=== PATIENT | female | born 1980 | race Caucasian/White ===

== ENCOUNTER 2022-02-27 10:32 | Outpatient (CLI) | payer OTHER, SELFPAY ==
[2022-02-27 14:13] LABS: Albumin* 4.3 g/dL (3.3-5.0)
[2022-02-27 14:14] LABS: Chloride* 107 mmol/L (96-114); Potassium* 4.5 mmol/L (3.6-5.1); Sodium* 138 mmol/L (135-149)
[2022-02-27 14:16] LABS: Aspartate Amino Transferase* 26 U/L (12-35); Bilirubin Total* 0.3 mg/dL (0.1-1.5); Blood Urea Nitrogen* 16 mg/dL (5-24); Carbon Dioxide* 25 mmol/L (20-32); Cholesterol* 179 mg/dL (90-199); Creatinine* 0.9 mg/dL (0.5-1.5); Estimated Glomerular Filt Rate 82 ml/min; Total Protein* 6.6 g/dL (6.0-8.3)
[2022-02-27 14:17] LABS: Alanine Aminotransferase* 25 U/L (4-35); Alkaline Phosphatase* 112 U/L (40-150); Calcium* 9.1 mg/dL (8.4-10.6); Glucose* 92 mg/dL (60-115); HDL Cholesterol* 63 mg/dL (>=50); LDL Cholesterol Calculated 84 mg/dL (<100); Triglycerides* 162 mg/dL (40-149)
[2022-02-28 22:34] LABS: Cortisol, Serum 8.2 ug/dL
== END 2022-02-27 10:33 | disposition home or self-care (01) ==
PROVIDERS: PCP Physician Assistant Medical; Visit Provider Physician Assistant Medical
DX: Z00.00 Encounter for general adult medical examination without abnormal findings (principal); R53.83 Other fatigue; Z13.6 Encounter for screening for cardiovascular disorders; Z13.29 Encounter for screening for other suspected endocrine disorder
CPT/HCPCS: 80053; 80061; 82533; 84443

== ENCOUNTER 2022-04-17 07:55 | Outpatient (CLI) | payer OTHER, SELFPAY ==
--- NOTE | 2022-04-17 08:15 | CRLHL7_ITS ---
For Patients: As a result of the Century Cures Act, medical imaging exams and procedure reports are released immediately into your electronic medical record. You may view this report before your referring provider. If you have questions, please contact your health care provider. BILATERAL SCREENING MAMMOGRAM WITH COMPUTER-AIDED DETECTION AND TOMOSYNTHESIS TECHNIQUE: CC and MLO views were obtained. These mammographic images have been obtained using full-field digital technique. These mammographic images were interpreted with the benefit of computer-aided detection. Breast Tomosynthesis was used in this interpretation. COMPARISON FILM: 03/07/21, 08/28/19, 05/21/17. FINDINGS: The breasts are heterogeneously dense, which may obscure small masses IMPRESSION: There is no radiographic evidence for malignancy. ASSESSMENT: BI-RADS Category 2: Benign RECOMMENDATION: Routine screening mammogram in 1 year. A lay language report of this examination will be provided to the patient. Jorge Alberto Sevilla M.D. Diagnostic Radiologist [email or web address] Transcribed: 3:27 p.[email or web address] singh/Dictated by: Jorge Alberto Sevilla MD @ 04/17/2022 10:42:00 AM (Electronically Signed)
== END 2022-04-17 07:56 | disposition home or self-care (01) ==
LOC: MAMMO 07:56
PROVIDERS: PCP Physician Assistant Medical; Visit Provider Physician Assistant Medical
DX: Z12.31 Encounter for screening mammogram for malignant neoplasm of breast (principal); R92.2 Inconclusive mammogram
CPT/HCPCS: 77063; 77067

== ENCOUNTER 2022-04-20 06:44 | Outpatient (CLI) | payer OTHER, SELFPAY | END 2022-04-20 06:45 | disposition home or self-care (01) | LOC: OP CLINIC 06:46 | PROVIDERS: PCP Physician Assistant Medical; Visit Provider Internal Medicine | DX: Z12.11 Encounter for screening for malignant neoplasm of colon (principal); K57.30 Diverticulosis of large intestine without perforation or abscess without bleeding; Z86.010 Personal history of colon polyps | CPT/HCPCS: 45378; J2250; J3010 ==

== ENCOUNTER 2022-07-31 08:09 | Outpatient (CLI) | payer OTHER, SELFPAY ==
--- NOTE | 2022-07-31 08:15 | CRLHL7_ITS ---
For Patients: As a result of the Century Cures Act, medical imaging exams and procedure reports are released immediately into your electronic medical record. You may view this report before your referring provider. If you have questions, please contact your health care provider. INDICATION: Irregular menses COMPARISON: 11/27/2019 TECHNIQUE: 2D perry scale and color Doppler images were acquired of the pelvis using a transabdominal and transvaginal approach. FINDINGS: Sonographic images demonstrate a normal size and smooth outer contour of the uterus. Uterus measures 7.2 cm in length by 4.6 cm in AP diameter by 5.6 cm in transverse dimension. The myometrium has a mildly heterogeneous echotexture. The endometrial lining appears heterogeneous and measures 9 mm in composite thickness. The right ovary measures 2.8 x 1.9 x 2.1 cm in size and the left ovary measures 2.4 x 1.2 x 2.6 cm. The ovaries demonstrate normal arterial and venous blood flow on color Doppler analysis. Trace physiologic free fluid. Small left ovarian cyst is present measuring up to 1.4 cm containing a single septation and small area of peripheral echogenicity. IMPRESSION: Heterogeneous endometrium measuring 9 millimeters. Mildly complicated left ovarian cyst measuring 1.4 cm. Follow-up in 8-12 weeks recommended. Dictated by Jorge Alberto Sevilla MD @ 07/31/2022 10:28:28 AM (Electronically Signed)
== END 2022-07-31 08:10 | disposition home or self-care (01) ==
LOC: US 08:09
PROVIDERS: PCP Physician Assistant Medical; Visit Provider Physician Assistant Medical
DX: N92.6 Irregular menstruation, unspecified (principal); R93.89 Abnormal findings on diagnostic imaging of other specified body structures; N83.202 Unspecified ovarian cyst, left side
CPT/HCPCS: 76830; 76856

== ENCOUNTER 2022-09-21 14:53 | Outpatient (CLI) | payer OTHER, SELFPAY ==
--- NOTE | 2022-09-21 15:00 | CRLHL7_ITS ---
For Patients: As a result of the Century Cures Act, medical imaging exams and procedure reports are released immediately into your electronic medical record. You may view this report before your referring provider. If you have questions, please contact your health care provider. CLINICAL HISTORY: Follow-up ovarian cyst Comparison 07/31/2022 TECHNIQUE: 2D perry scale and color Doppler images were acquired of the pelvis using a transvaginal approach. FINDINGS: No uterine fibroid is present. The endometrium is mildly heterogeneous and measures 9 millimeters. Cervical nabothian cysts are present. There is a right endometrial cyst measuring 7 millimeters. The right ovary measures 5.4 x 2.5 x 2.7 cm. The left ovary measures 2.4 x 1.7 x 1.9 cm. Simple left ovarian cysts are present measuring up to 1.6 cm. A simple right ovarian cyst is present measuring 2.3 cm. There is a additional right ovarian cyst containing internal echoes measuring 2.0 cm. The ovaries demonstrate normal arterial and venous blood flow on color Doppler analysis. Mild hypoechoic pelvic free-fluid noted measuring 4 cc. Simple bilateral ovarian cysts/follicles measuring up to 2.3 cm. There is a heterogeneously hypoechoic right ovarian cyst measuring 2.0 cm which has the appearance of a hemorrhagic cyst. Mild free fluid present containing blood products. Heterogeneous endometrium measuring up to 9 millimeters with small adjacent cyst in the mid uterus. Dictated by Jorge Alberto Sevilla MD @ 09/24/2022 9:56:08 AM (Electronically Signed)
== END 2022-09-21 14:54 | disposition home or self-care (01) ==
LOC: US 14:53
PROVIDERS: PCP Physician Assistant Medical; Visit Provider Physician Assistant Medical
DX: N83.209 Unspecified ovarian cyst, unspecified side (principal); N83.292 Other ovarian cyst, left side; N83.291 Other ovarian cyst, right side; R93.89 Abnormal findings on diagnostic imaging of other specified body structures
CPT/HCPCS: 76830

== ENCOUNTER 2022-10-11 15:42 | Outpatient (CLI) | payer OTHER, SELFPAY | END 2022-10-11 15:43 | disposition home or self-care (01) | LOC: FRMREF 15:42 | PROVIDERS: PCP Physician Assistant Medical; Visit Provider Registered Nurse | DX: R39.15 Urgency of urination (principal) | CPT/HCPCS: 87086 ==

== ENCOUNTER 2023-01-01 06:44 | Day surgery (SDC) | payer OTHER, SELFPAY ==
--- OUTSIDE RECORDS SUMMARY | 2023-01-01 06:48 | XMS_ITS | Continuity of Care Document ---
Author Name Unknown Organization [facility] Address [address] [address] [place] [address] Phone Care Team Providers Care Sustainability Coach Name Role Phone Unavailable Unavailable Unavailable Allergies, Adverse Reactions, Alerts Substance Reaction Status Criticality No Known allergies Procedures Procedure Date Ua Dip Stik/tablet; Wo Micro A 12 Hepatitis C Antibody; Sed Rate, Erythrocyte; Auto Hepatitis A Antibody; Igg & Ig 12 Ag-immunoassay; Hep B Surface 2 Hepatitis B Surface Antibody Ferritin Offic Cons New/estab Mod Routine Serum Collection [id number] Advance Directives Directive Yes / No Effective Date File Name No Information Encounters Encounter Description Practice Location Reason(s) For Visit Diagnoses Date Provider Providers Copied on Encounter [facility], [address] [address], [place], [id number], [place] tel:[phone] [facility] No Information No Information Offic Cons New/estab Mod [facility], [address] [address], [place], [id number], [place] tel:[phone] [facility] Abnormal liver enzymes (chief complaint) Fatigue (chief complaint) Abn Blood Chemistry NecConstipatio n Unspecified 2 No Information Referring Provider: Jes DOUGLAS, [address] [place] [address], [address]. tel:[phone] Family History Family Member Type Diagnosis Age At Onset First degree family history Problem (finding) No Family history of No history of Colon Polyps First degree family history Problem (finding) Thyroid Disorder First degree family history Problem (finding) diverticulitis of colon First degree family history Problem (finding) No history of Crohn's First degree family history Problem (finding) No history of Cancer, colon First degree family history Problem (finding) No history of Ulcerative Colitis Payers Payer name Insurance type Covered alliance party ID Authoriza timera(s) [facility] [id number] Social History Type Description Quantity Date Captured Comments Sex Female Smoking Status No Information Chief Complaint And Reason For Visit No Information Reason For Referral Reason For Referral No Information History Of Present Illness Encounter Date Complaint History Of Prese nt Illness No Information Functional Status Date Functional Assessmen t No Information Instructions Date Instruction Additional Infor mation No Information Assessments Type Assessment Date No Information Patient Care Teams Name Effective Dates (start - stop) Status Members No Information
--- OUTSIDE RECORDS SUMMARY | 2023-01-01 06:48 | XMS_ITS | Continuity of Care Document ---
Author Name Unknown Organization [facility] Address [address] [address] [place] [address] Phone Care Team Providers Care Painting Manager Name Role Phone Unavailable Unavailable Unavailable Allergies, [...] Diagnoses Date Provider Providers Copied on Encounter [facility], [address] [address], [place], [id number], [place] tel:[phone] [facility] No Information No Information Offic Cons New/estab Mod [facility], [address] [address], [place], [id number], [place] tel:[phone] [facility] Abnormal liver enzymes (chief complaint) Fatigue (chief complaint) Abn Blood Chemistry NecConstipatio n Unspecified 2 No Information Referring Provider: Jes DOUGLAS, [address] [place] [address], [address]. tel:[phone] Family History Family Member Type Diagnosis Age [...] type Covered alliance party ID Authoriza timera(s) [facility] [id number] Social History Type Description Quantity Date Captured [...]
[2023-01-01 07:04] VITALS: BP 114/72; PULSE 76; RESP 16; TEMP 36.3; O2SAT 97; BMI 31.4
[2023-01-01 07:04] LABS: Ur HCG Qualitative* Negative (Negative)
[2023-01-01] MEDS: SODIUM CHLORIDE 0.9 % (FLUSH) 10 ML SYRINGE IVF (07:15)
[2023-01-01] MEDS: LACTATED RINGERS 1000 ML 1,000 ML 100 ML IV (07:15)
[2023-01-01 07:34] LABS: Hemoglobin* 12.2 gm/dL (12.0-16.0)
[2023-01-01] MEDS: SCOPOLAMINE 1 MG/3 DAY PATCH 1 PATCH TRANSDERMA (08:00)
--- NOTE | 2023-01-01 09:18 | W.PM.GYNPROC ---
Procedure Note Time Seen by Provider: 08:15 Date of procedure: 01/01/23 Pre-op diagnosis: Abnormal uterine bleeding-suspected endometrial polyps Post-op diagnosis: same Procedure: Hysteroscopy, dilation and curettage Anesthesia: MAC Complications: None Surgeon: Vishnu Maldonado MD Estimated blood loss (mL): 5 IV fluids (mL): 600 Urine Output (mL): 5 Pathology: specimen obtained, sent to pathology (1. Endometrial curetting) Condition: stable Disposition: same day Findings: Findings: Bimanual exam: Antevereted uterus of about 9cm, regular contour, no adnexal masses. Intrauterine cavity: Initially left sided cornua not easily visualized, after curetting performed identified easily, bilateral cornual openings seen. Procedure Description: Patient was taken to the OR were MAC anesthesia was administered without difficulty. She was placed in the dorsal lithotomy position with Freddie type stirrups. An exam under anesthesia as described above. Patient was then prepared and draped in the normal sterile fashion. A bivalved speculum was inserted in the posterior aspect of the vagina. 0.5% Marcaine was injected at 2 and 11 o'clock a total of about 5mL utilized. A single-tooth tenaculum was used to grasp the anterior lip of the cervix. The uterus was carefully sounded to 8 cm. The cervical os was sequentially dilated to accommodate the 5 mm TrueClear hysteroscope using Hegar dilators. A 5 mm 30 degree TrueClear hysteroscope was introduced under direct visualization, and the uterus was distended with normal saline. Findings as above. Soft tissue incisor blade from TrueClear hysteroscope system was introduced under direct visualization and endometrial curettings performed. Hysteroscope removed under direct visualization. Tenaculum was removed from the cervix and good hemostasis was noted at puncture sites. Patient tolerated the procedure well. Instrument and sponge counts were correct x2. The patient was awakened from MAC anesthesia and taken to the recovery room in a stable condition. The patient will go home after recovering from anesthesia and meeting all the criteria for discharge. She was given instruction regarding follow-up visit in 2 weeks at [facility] and instructions for pain medication. Fluid deficit: 130mL
[2023-01-01 09:19] VITALS: BP 135/85; PULSE 64; RESP 16; TEMP 36.5; O2SAT 98
--- NOTE | 2023-01-01 09:29 | W.ANESCHARGE ---
Anesthesia Charges Start Date/Time Anesthesia Start Date: 01/01/23 Anesthesia Start Time: 08:47 Stop Date/Time Anesthesia Stop Date: 01/01/23 Anesthesia Stop Time: 09:21
[2023-01-01 09:30] VITALS: BP 137/81; PULSE 71; RESP 16; O2SAT 97
[2023-01-01] MEDS: ACETAMINOPHEN 500 MG TABLET 1000 MG PO (09:42)
[2023-01-01 09:45] VITALS: BP 122/77; PULSE 71; RESP 16; O2SAT 97
[2023-01-01 10:00] VITALS: BP 114/75; PULSE 63; RESP 16; O2SAT 96
== END 2023-01-01 10:20 | disposition home or self-care (01) ==
PROVIDERS: PCP Physician Assistant Medical; Visit Provider Obstetrics & Gynecology
PROC: 0UDB8ZZ Extraction of Endometrium, Via Natural or Artificial Opening Endoscopic (ICD-10-PCS; CPT 58558; principal; 2023-01-01 08:15)
DX: N93.8 Other specified abnormal uterine and vaginal bleeding (principal)
CPT/HCPCS: 58558; 00952; 36415; 81025; 85018; 88305; A9270; J1100; J2250; J2405; J2704; J3010; J7120

== ENCOUNTER 2023-05-20 13:29 | Outpatient (CLI) | payer OTHER, SELFPAY ==
--- OUTSIDE RECORDS SUMMARY | 2023-05-20 13:39 | XMS_ITS | Clinical Summary ---
Author Name Unknown Organization [facility] Address [place], [place] [address] Care Team Providers Care Director Channel Name Role Phone Ni Cai Primary Care Provider [phone] Allergies No known active allergies Medications Medication Sig Dispensed Refills Start Date End Date Status albuterol HFA (PROVENTIL HFA) 90 mcg/actuation inhaler Inhale 2 Puffs by mouth 4 times daily if needed. 0 05/20/2015 Active venlafaxine (EFFEXOR XR) 75 mg cp24 Extended-Release capsule Take by mouth once daily with a meal. 0 01/15/2020 Active pantoprazole (PROTONIX) 40 mg delayed-release tabletIndications:Yoshi roesophageal reflux disease without esophagitis Take 1 tablet by mouth once daily. 30 tablet 3 01/15/2020 Active Active Problems Problem Noted Date Diagnosed Date History of colon polyps 05/20/2015 Overview: Colonoscopy 05/2015 normal repeat in 5 years Social History Tobacco Use Types Packs/Day Years Used Date Smoking Tobacco: Never Assessed Social Connections Answer Date Recorded Frequency of Communication with Friends and Fami ly Not on file 04/01/2021 Financial Resource Strain Answer Date R ecorded Difficulty of Paying Living Expenses Not on file 04/01/2021 Difficulty of Paying Living Expenses Not on file 04/01/2021 Sex and Gender Information Value Date Recorded Sex Assigned at Not on file Gender Identity Not on file Sexual Orientation Not on file Obstetrics History Last Filed Vital Signs Vital Sign Reading Time Taken Comments Blood Pressure 112/64 01/15/2020 3:14 PM CDT Pulse 90 01/15/2020 3:14 PM CDT Temperature - - Respiratory Rate 17 01/15/2020 3:14 PM CDT Oxygen Saturation 100% 05/20/2015 10:06 AM RADIO ADJUSTER Inhaled Oxygen Concentration - - Weight - - Height - - Body Mass Index - - Plan of Treatment Health Maintenance Due Date Last Done Comments COVID-19 vaccine series (#1) 04/02/1980 Tdap 09/30/1990 Depression screening for age 12+ 1991 HIV for age 15-65 09/30/1994 BMI (ht and wt on same day) for age 18+ 09/30/1997 Hepatitis C screening for age 18-79 09/30/1997 Tetanus booster 1999 Influenza for age 9-49 11/30/2022 Pap test for age 21-65 02/15/2025 , 02/15/2022, 06/06/2018, Additional history exists Pneumococcal series for age 6-64 Aged Out No longer eligible based on patient's age to complete this topic Care Teams Director Channel Relationship Specialty Start Date End Date Ni Cai PCP - General Family Practice 05/20/15
--- OUTSIDE RECORDS SUMMARY | 2023-05-20 13:39 | XMS_ITS | Clinical Summary ---
Author Name Unknown Organization [facility] Address [address] [place] [address] Care Team Providers Care Cuff Setter Lockstitch Name Role Phone Unavailable Primary Care Provider Unavailabl e Source Comments You are receiving this document as you are listed as the primary care provider,follow-up provider, or the patient has been referred to you for consultation.This is in compliance with the Medicare andMedicaid EHR Incentive Program,which states Providers who transition their patient to another setting of careor provider of care or refers their patient to another provider of care shouldprovide summary care record for each transition of care or referral. [facility] Allergies No known active allergies Medications Medication Sig Dispensed Refills Start Date End Date Status VENTOLIN HFA 108 (90 Base) MCG/ACT inhaler INHALE 2 PUFFS BY MOUTH EVERY 4 HOURS NEEDED 05/02/2020 Active pantoprazole (PROTONIX) 40 MG tablet Take 40 mg by mouth daily. 04/08/2020 Active venlafaxine (EFFEXORXR) 75 MG 24 hour release capsule 05/05/2020 Acti ve scopolamine (TRANSDERM-SCOP) 1.0mg/3 days patch 04/28/2020 Active Active Problems No known active problems Immunizations Name Administration Dates Next Due Tdap 05/09/2020 Social History Tobacco Use Types Packs/Day Years Used Date Smoking Tobacco: Never Smokeless Tobacco: Never Sex and Gender Information Value Date Recorded Sex Assigned at Not on file Gender Identity Not on file Sexual Orientation Not on file Last Filed Vital Signs Vital Sign Reading Time Taken Comments Blood Pressure 113/87 05/09/2020 2:24 PM SECOND BUTLER Pulse 95 05/09/2020 2:24 PM SECOND BUTLER Temperature 36.8 ??C (98.2 ??F) 05/09/2020 2:24 PM CS T Respiratory Rate 16 05/09/2020 2:24 PM SECOND BUTLER Oxygen Saturation 100% 05/09/2020 2:24 PM SECOND BUTLER Inhaled Oxygen Concentration - - Weight - - Height - - Body Mass Index - - Plan of Treatment Health Maintenance Due Date Last Done Comments Cervical Cancer Screening Due 1979 Hep C Screening (Preventive Services) 1979 HIV Screening (Preventive Services) 1995 Adult Preventive Visit 09/30/1997 HepB (1) 09/30/1998 COVID-19 Vaccine (3 - season) 2022 08/14/2020, 07/17/2020 Influenza (#1) 2022 04/08/2019, 11/0 06/2013, 01/05/2011, Additional history exists Zoster/Shingles (1 of 2) 09/30/2029 DTaP/Tdap/Td (3 - Tdap) 05/09/2030 05/09/2020, 08/13 HPV Vaccine Aged Out No longer eligi ble based on patient's age to complete this topic HepA Aged Out No longer eligi ble based on patient's age to complete this topic Hib Aged Out No longer eligi ble based on patient's age to complete this topic IPV (Polio) Aged Out No longer eligi ble based on patient's age to complete this topic MCV4 Aged Out No longer eligi ble based on patient's age to complete this topic Pneumococcal Aged Out No longer eligi ble based on patient's age to complete this topic
--- OUTSIDE RECORDS SUMMARY | 2023-05-20 13:39 | XMS_ITS | Continuity of Care Document ---
Author Name Unknown Organization [facility] Address [address] [address] [place] [address] Phone Care Team Providers Care Mail Room Name Role Phone Unavailable Unavailable Unavailable Allergies, [...] Diagnoses Date Provider Providers Copied on Encounter [facility], [address] [address], [place], [id number], [place] tel:[phone] [facility] No Information No Information Offic Cons New/estab Mod [facility], [address] [address], [place], [id number], [place] tel:[phone] [facility] Abnormal liver enzymes (chief complaint) Fatigue (chief complaint) Abn Blood Chemistry NecConstipatio n Unspecified 2 No Information Referring Provider: Jes DOUGLAS, [address] [place] [address], [address]. tel:[phone] Family History Family Member Type Diagnosis Age [...] Colitis Payers Payer name Insurance type Covered constitution party ID Authoriza timera(s) [facility] [id number] Social History Type Description Quantity Date Captured [...]
== END 2023-05-20 13:30 | disposition home or self-care (01) ==
PROVIDERS: PCP Physician Assistant Medical; Visit Provider Physician Assistant Medical
DX: R23.9 Unspecified skin changes (principal); Z13.228 Encounter for screening for other metabolic disorders; Z13.220 Encounter for screening for lipoid disorders; Z13.29 Encounter for screening for other suspected endocrine disorder
CPT/HCPCS: 80053; 80061; 84443; 86140

== ENCOUNTER 2023-09-03 14:54 | Outpatient (CLI) | payer OTHER, SELFPAY ==
--- OUTSIDE RECORDS SUMMARY | 2023-09-03 14:57 | XMS_ITS | Clinical Summary ---
Author Organization [facility] Address [place], [place] [address] Care Team Providers Care Cleaning Technician Name Role Phone Ni Cai Primary Care Provider Allergies No known active allergies Medications Medication [...] once daily. 30 tablet 3 01/15/2020 Active Breo Ellipta 100-25 mcg/dose inhaler INHALE 1 PUFF BY MOUTH EVERY 24 HOURS FOR ASTHMA 06/19/2023 Active Active Problems Problem Noted Date Diagnosed Date History of colon polyps 05/20/2015 Overview: Colonoscopy 05/2015 normal repeat in 5 years Encounters Date Type Department Care Team Description 06/20/2023 5:05 PM CDT Office Visit [facility] [place] [address] [place] [address] Keila Dickey MD [facility] 06/20/2023 Travel from Last 3 Months Social History Tobacco Use Types Packs/Day Years Used Date Smoking Tobacco: Never Smokeless Tobacco: Never Tobacco Cessation:Counseling Given: Not Answered Social Connections Answer Date Recorded Frequency of [...] Sign Reading Time Taken Comments Blood Pressure 114/71 06/20/2023 5:48 PM CDT Pulse 82 06/20/2023 5:48 PM CDT Temperature 36.8 ??C (98.3 ??F) 06/20/2023 5:48 PM CD T Respiratory Rate 17 01/15/2020 3:14 PM CDT Oxygen Saturation 98% 06/20/2023 5:48 PM CDT Inhaled Oxygen Concentration - - Weight 85.9 kg (189 lb 6.4 oz) 06/20/2023 5:52 P M CDT Height - - Body Mass Index - - Plan of Treatment Health Maintenance Due Date Last Done Comments Tdap 09/30/1990 Depression screening for age 12+ 1991 HIV for age 15-65 09/30/1994 BMI (ht and wt on same day) for age 18+ 09/30/1997 Hepatitis C screening for age 18-79 09/30/1997 Tetanus booster 1999 COVID-19 vaccine series (2022- season) 2022 08/14/2020, 07/17/2020 Influenza for age 9-49 12/01/2023 Pap test for age 21-65 02/15/2025 , 02/15/2022, 06/06/2018, Additional history exists Pneumococcal series for age 6-64 Aged Out No longer eligible based on patient's age to complete this topic Procedures Procedure Name Priority Date/Time Associated Diagnosis Comments HPV THIN PREP Routine 02/15/2022 12:00 PM FOOD PHOTOGRAPHER from Last 3 Months or Most Recently Relevant to Health Maintenance Results * HPV HIGH RISK (02/15/2022 12:00 PM FOOD PHOTOGRAPHER) TYPE 16 Negative Negative 02/23/2022 11:17 AM FOOD PHOTOGRAPHER [facility] TYPE 18 Negative Negative 02/23/2022 11:17 AM FOOD PHOTOGRAPHER [facility] OTHER HIGH RISK TYPES Negative Negative 02/23/2022 11:17 AM FOOD PHOTOGRAPHER [facility] Other (Cervical/Vagina l) 02/15/2022 12:00 PM FOOD PHOTOGRAPHER 02/16/2022 10:02 AM FOOD PHOTOGRAPHER Narrative [facility] - 02/23/2022 11:17 AM FOOD PHOTOGRAPHER HPV types 16, 18, 31, 33, 35, 39, 45, 51, 52, 56, 58, 59, 66 and 68 DNA were undetectable or below the pre-set threshold. Methodology: Matthew Franco 4800 HPV Test Jovana Byrne PA-C MICROBIOLOGY [facility] [address] [place] [address], from Last 3 Months or Most Recently Relevant to Health Maintenance Care Teams Cleaning Technician Relationship Specialty Start Date End Date Ni Cai PCP - General Family Practice 05/20/15
--- OUTSIDE RECORDS SUMMARY | 2023-09-03 14:57 | XMS_ITS | Clinical Summary ---
Author Organization [facility] Address [address] [place] [address] Care Team Providers Care Legal Receptionist Name Role Phone Unavailable Primary Care Provider [...] for each transition of care or referral. [facility] Allergies No known active allergies Medications Medication [...] Comments Blood Pressure 113/87 05/09/2020 2:24 PM CYLINDER PRESS OPERATOR HELPER Pulse 95 05/09/2020 2:24 PM CYLINDER PRESS OPERATOR HELPER Temperature 36.8 ??C (98.2 ??F) 05/09/2020 2:24 PM CS T Respiratory Rate 16 05/09/2020 2:24 PM CYLINDER PRESS OPERATOR HELPER Oxygen Saturation 100% 05/09/2020 2:24 PM CYLINDER PRESS OPERATOR HELPER Inhaled Oxygen Concentration - - Weight - - Height - - Body Mass Index - - Plan of Treatment Health Maintenance Due Date Last Done Comments Cervical Cancer Screening Due 1979 Hep C Screening (Preventive Services) 1979 HIV Screening (Preventive Services) 1995 Adult Preventive Visit 09/30/1997 HepB (1) 09/30/1998 COVID-19 Vaccine (3 - season) 2022 08/14/2020, 07/17/2020 Influenza (Season Ended) 2023 020, 02/02/2014, 01/05/2011, Additional history exists Zoster/Shingles (1 of [...]
--- NOTE | 2023-09-03 15:00 | CRLHL7_ITS ---
For Patients: As a result of the Century Cures Act, medical imaging exams and procedure reports are released immediately into your electronic medical record. You may view this report before your referring provider. If you have questions, please contact your health care provider. BILATERAL SCREENING MAMMOGRAM WITH COMPUTER-AIDED DETECTION AND TOMOSYNTHESIS TECHNIQUE: CC and MLO views were obtained. These mammographic images have been obtained using full-field digital technique. These mammographic images were interpreted with the benefit of computer-aided detection. Breast Tomosynthesis was used in this interpretation. COMPARISON FILM: 04/17/22, 03/07/21, 08/28/19. FINDINGS: The breasts are heterogeneously dense, which may obscure small masses IMPRESSION: There is no radiographic evidence for malignancy. ASSESSMENT: BI-RADS Category 2: Benign RECOMMENDATION: Routine screening mammogram in 1 year. A lay language report of this examination will be provided to the patient. Jorge Alberto Sevilla M.D. Diagnostic Radiologist [email or web address] Transcribed: 2:50 p.[email or web address] singh/Dictated by: Jorge Alberto Sevilla MD @ 09/06/2023 1:09:00 PM (Electronically Signed)
== END 2023-09-03 14:55 | disposition home or self-care (01) ==
LOC: MAMMO 14:54
PROVIDERS: PCP Physician Assistant Medical; Visit Provider Physician Assistant Medical
DX: Z12.31 Encounter for screening mammogram for malignant neoplasm of breast (principal); R92.2 Inconclusive mammogram
CPT/HCPCS: 77063; 77067

== ENCOUNTER 2023-12-17 14:41 | Outpatient (CLI) | payer OTHER, SELFPAY ==
--- OUTSIDE RECORDS SUMMARY | 2023-12-17 14:43 | XMS_ITS | Clinical Summary ---
Author Organization [employer] [facility] Address [place], [place] [address] Care Team Providers Care Spinning Lathe Operator Hydraulic Name Role Phone Nader Caidiane Jean Primary Care Provider [phone] Allergies No known active allergies Medications Medication [...] Diagnosed Date History of colon polyps 05/20/2015 Overview (05/20/2015): Colonoscopy 05/2015 normal repeat in 5 years [...] 09/30/1997 Tetanus booster 1999 COVID-19 vaccine series ( season) 2023 08/14/2020, 07/17/2020 Influenza for age 9-49 12/01/2023 Pap test for age 21-65 02/15/2025 , 02/15/2022, 06/06/2018, Additional history exists Pneumococcal series for age 6-64 Aged Out No longer eligible based on patient's age to complete this topic Procedures Procedure Name Priority Date/Time Associated Diagnosis Comments HPV HIGH RISK Routine 02/15/2022 12:00 PM SHADE CLASSIFIER from Last 3 Months or Most Recently Relevant to Health Maintenance Results * HPV HIGH RISK (02/15/2022 12:00 PM SHADE CLASSIFIER) TYPE 16 Negative Negative 02/23/2022 11:17 AM SHADE CLASSIFIER [facility] TYPE 18 Negative Negative 02/23/2022 11:17 AM SHADE CLASSIFIER [facility] OTHER HIGH RISK TYPES Negative Negative 02/23/2022 11:17 AM SHADE CLASSIFIER [facility] Other (Cervical/Vagina l) 02/15/2022 12:00 PM SHADE CLASSIFIER 02/16/2022 10:02 AM SHADE CLASSIFIER Narrative [facility] - 02/23/2022 11:17 AM SHADE CLASSIFIER HPV types 16, 18, 31, 33, 35, 39, 45, 51, 52, 56, 58, 59, 66 and 68 DNA were undetectable or below the pre-set threshold. Methodology: Matthew Franco 4800 HPV Test Jovana Byrne PA-C MICROBIOLOGY [facility] [address] [place] [address], from Last 3 Months or Most Recently Relevant to Health Maintenance Care Teams Spinning Lathe Operator Hydraulic Relationship Specialty Start Date End Date Ni Cai PCP - General Family Practice 05/20/15
--- OUTSIDE RECORDS SUMMARY | 2023-12-17 14:44 | XMS_ITS | Clinical Summary ---
Author Organization [facility] Address [address] [place] [address] Care Team Providers Care Table Assembler Metal Name Role Phone Unavailable Primary Care Provider [...] for each transition of care or referral. [facility] Allerg[facility] No known active allergies [...] Comments Blood Pressure 113/87 05/09/2020 2:24 PM MUSSEL FARMER Pulse 95 05/09/2020 2:24 PM MUSSEL FARMER Temperature 36.8 ??C (98.2 ??F) 05/09/2020 2:24 PM CS T Respiratory Rate 16 05/09/2020 2:24 PM MUSSEL FARMER Oxygen Saturation 100% 05/09/2020 2:24 PM MUSSEL FARMER Inhaled Oxygen Concentration - - Weight - - Height - - Body Mass Index - - Plan of Treatment Health Maintenance Due Date Last Done Comments Cervical Cancer Screening Due 1979 Hep C Screening (Preventive Services) 1979 Mammogram 1979 HIV Screening (Preventive Services) 1995 Adult Preventive Visit 09/30/1997 HepB (1) 09/30/1998 COVID-19 Vaccine ( season) 2023 08/14/2020, 07/17/2020 Influenza (#1) 2023 04/08/2019, 11/0 06/2013, 01/05/2011, Additional history exists [...]
--- NOTE | 2023-12-17 14:45 | CRLHL7_ITS ---
For Patients: As a result of the Century Cures Act, medical imaging exams and procedure reports are released immediately into your electronic medical record. You may view this report before your referring provider. If you have questions, please contact your health care provider. CLINICAL HISTORY: pelvic pain TECHNIQUE: 2D perry scale ultrasound. In addition color Doppler and spectral Doppler analysis was performed of the pelvis using a transabdominal and transvaginal approach. FINDINGS: No uterine fibroid. The uterus measures 6.2 x 3.5 x 4.6 cm. Cervical nabothian cysts noted. The endometrial lining is heterogeneous with multiple small cysts and measures 5.5 mm in thickness. The right ovary measures 3.6 x 2.3 x 3.3 cm in size and the left ovary measures 2.2 x 1.4 x 1.2 cm. The ovaries demonstrate normal arterial and venous blood flow on color Doppler and spectral Doppler analysis. There are no suspicious fluid collections within the cul-de-sac. Simple cyst right ovary measures 3.0 x 2.0 x 2.5 cm. IMPRESSION: Simple right ovarian cyst measures 3.6 cm. No ovarian torsion or adnexal mass. No excess pelvic free fluid. Heterogeneous endometrium with multiple small cysts. The endometrium measures 5.5 millimeters in thickness. Dictated by Jorge Alberto Sevilla MD @ 12/18/2023 12:07:29 PM (Electronically Signed)
== END 2023-12-17 14:42 | disposition home or self-care (01) ==
LOC: US 14:41
PROVIDERS: PCP Physician Assistant Medical; Visit Provider Physician Assistant Medical
DX: R10.2 Pelvic and perineal pain (principal); N83.201 Unspecified ovarian cyst, right side; R93.89 Abnormal findings on diagnostic imaging of other specified body structures
CPT/HCPCS: 76830; 76856; 93976

== ENCOUNTER 2023-12-20 12:38 | Outpatient (CLI) | payer OTHER, SELFPAY ==
--- OUTSIDE RECORDS SUMMARY | 2023-12-20 12:42 | XMS_ITS | Clinical Summary ---
Author Organization [employer] [facility] Address [place], [place] [address] Care Team Providers Care Debone Processing Supervisor Name Role Phone Nader Caidiane Jean Primary Care Provider [phone] Allergies No known active allergies Medications Medication [...] HPV HIGH RISK Routine 02/15/2022 12:00 PM DESPATCH CLERK from Last 3 Months or Most Recently Relevant to Health Maintenance Results * HPV HIGH RISK (02/15/2022 12:00 PM DESPATCH CLERK) TYPE 16 Negative Negative 02/23/2022 11:17 AM DESPATCH CLERK [facility] TYPE 18 Negative Negative 02/23/2022 11:17 AM DESPATCH CLERK [facility] OTHER HIGH RISK TYPES Negative Negative 02/23/2022 11:17 AM DESPATCH CLERK [facility] Other (Cervical/Vagina l) 02/15/2022 12:00 PM DESPATCH CLERK 02/16/2022 10:02 AM DESPATCH CLERK Narrative [facility] - 02/23/2022 11:17 AM DESPATCH CLERK HPV types 16, 18, 31, 33, 35, 39, 45, 51, 52, 56, 58, 59, 66 and 68 DNA were undetectable or below the pre-set threshold. Methodology: Matthew Franco 4800 HPV Test Jovana Byrne PA-C MICROBIOLOGY [facility] [address] [place] [address], from Last 3 Months or Most Recently Relevant to Health Maintenance Care Teams Debone Processing Supervisor Relationship Specialty Start Date End Date Ni Cai PCP - General Family Practice 05/20/15
--- OUTSIDE RECORDS SUMMARY | 2023-12-20 12:42 | XMS_ITS | Continuity of Care Document ---
Author Organization [facility] Address [address] [address] [place] [address] Phone Care Team Providers Care Hand Spinner Name Role Phone Unavailable Unavailable Unavailable Allergies, [...] Diagnoses Date Provider Providers Copied on Encounter [facility], [address] [address], [place], [id number], [place] tel:[phone] [facility] No Information No Information Offic Cons New/estab Mod [facility], [address] [address], [place], [id number], [place] tel:[phone] [facility] Abnormal liver enzymes (chief complaint) Fatigue (chief complaint) Abn Blood Chemistry NecConstipatio n Unspecified 2 No Information Referring Provider: Jes DOUGLAS, [address] [place], [address]. tel:[phone] Family History Family Member Type Diagnosis Age [...] type Covered alliance party ID Authoriza timera(s) [facility] [id number] Social History Type Description Quantity Date Captured [...]
--- OUTSIDE RECORDS SUMMARY | 2023-12-20 12:42 | XMS_ITS | Clinical Summary ---
Author Organization [facility] Address [address] [place] [address] Care Team Providers Care Process Area Supervisor Name Role Phone Unavailable Primary Care Provider [...] for each transition of care or referral. [facility] Allergies No known active allergies Medications Medication [...] Comments Blood Pressure 113/87 05/09/2020 2:24 PM PILE DRIVER ENGINEER Pulse 95 05/09/2020 2:24 PM PILE DRIVER ENGINEER Temperature 36.8 ??C (98.2 ??F) 05/09/2020 2:24 PM CS T Respiratory Rate 16 05/09/2020 2:24 PM PILE DRIVER ENGINEER Oxygen Saturation 100% 05/09/2020 2:24 PM PILE DRIVER ENGINEER Inhaled Oxygen Concentration - - Weight - [...]
== END 2023-12-20 12:39 | disposition home or self-care (01) ==
LOC: LKVREF 12:39
PROVIDERS: PCP Physician Assistant Medical; Visit Provider Obstetrics & Gynecology
DX: R10.2 Pelvic and perineal pain (principal)
CPT/HCPCS: 87086

== ENCOUNTER 2024-01-15 06:01 | Day surgery (SDC) | payer OTHER, SELFPAY ==
[2024-01-15] VITALS (21 sets, daily range): BP systolic 93–111; BP diastolic 52–77; PULSE 60–78; RESP 11–16; TEMP 36.3–37.1; O2SAT 96–100; BMI 31.6
--- OUTSIDE RECORDS SUMMARY | 2024-01-15 06:05 | XMS_ITS | Clinical Summary ---
Author Organization [employer] [facility] Address [place], [place] [address] Care Team Providers Care Life Skills Teacher Name Role Phone Nader Caidiane Jean Primary Care Provider Allergies No known active [...] HPV HIGH RISK Routine 02/15/2022 12:00 PM ASSISTANT PURCHASING MANAGER from Last 3 Months or Most Recently Relevant to Health Maintenance Results * HPV HIGH RISK (02/15/2022 12:00 PM ASSISTANT PURCHASING MANAGER) TYPE 16 Negative Negative 02/23/2022 11:17 AM ASSISTANT PURCHASING MANAGER [facility] TYPE 18 Negative Negative 02/23/2022 11:17 AM ASSISTANT PURCHASING MANAGER [facility] OTHER HIGH RISK TYPES Negative Negative 02/23/2022 11:17 AM ASSISTANT PURCHASING MANAGER [facility] Other (Cervical/Vagina l) 02/15/2022 12:00 PM ASSISTANT PURCHASING MANAGER 02/16/2022 10:02 AM ASSISTANT PURCHASING MANAGER Narrative [facility] - 02/23/2022 11:17 AM ASSISTANT PURCHASING MANAGER HPV types 16, 18, 31, 33, 35, 39, 45, 51, 52, 56, 58, 59, 66 and 68 DNA were undetectable or below the pre-set threshold. Methodology: Matthew Franco 4800 HPV Test Jovana Byrne PA-C MICROBIOLOGY [facility] [address] [place] [address], from Last 3 Months or Most Recently Relevant to Health Maintenance Care Teams Life Skills Teacher Relationship Specialty Start Date End Date Ni Cai PCP - General Family Practice 05/20/15
--- OUTSIDE RECORDS SUMMARY | 2024-01-15 06:05 | XMS_ITS | Clinical Summary ---
Author Organization [facility] Address [address] [place] [address] Care Team Providers Care Crutching Contractor Name Role Phone Unavailable Primary Care Provider [...] each transition of care or referral. [facility] Allergies No known active allergies [...] Comments Blood Pressure 113/87 05/09/2020 2:24 PM CERTIFIED MARINE MECHANIC Pulse 95 05/09/2020 2:24 PM CERTIFIED MARINE MECHANIC Temperature 36.8 ??C (98.2 ??F) 05/09/2020 2:24 PM CS T Respiratory Rate 16 05/09/2020 2:24 PM CERTIFIED MARINE MECHANIC Oxygen Saturation 100% 05/09/2020 2:24 PM CERTIFIED MARINE MECHANIC Inhaled Oxygen Concentration - - Weight - [...] on patient's age to complete this topic Infant RSV Aged Out No longer eligi ble based on patient's age to complete this topic MCV4 Aged Out No longer eligi ble based on patient's age to complete this topic Pneumococcal Aged Out No longer eligi ble based on patient's age to complete this topic
--- OUTSIDE RECORDS SUMMARY | 2024-01-15 06:05 | XMS_ITS | Continuity of Care Document ---
Author Organization [facility] Address [address] [address] [place] [address] Phone Care Team Providers Care Identification Printing Machine Setter Name Role Phone Unavailable Unavailable Unavailable Allergies, [...] Diagnoses Date Provider Providers Copied on Encounter [facility], [address] [address], [place], [id number], [place] tel:[phone] [facility] No Information No Information Offic Cons New/estab Mod [facility], [address] [address], [place], [id number], [place] tel:[phone] [facility] Abnormal liver enzymes (chief complaint) Fatigue (chief complaint) Abn Blood Chemistry NecConstipatio n Unspecified 2 No Information Referring Provider: Jes DOUGLAS, [address] [place], [address]. tel:[phone] Family History Family Member Type Diagnosis Age [...] Colitis Payers Payer name Insurance type Covered green party ID Authoriza timera(s) [facility] [id number] Social History Type Description Quantity Date Captured [...]
[2024-01-15] MEDS: SODIUM CHLORIDE 0.9 % (FLUSH) 10 ML SYRINGE IVF (06:45)
[2024-01-15] MEDS: 0.9 % SODIUM CHLORIDE 1000 ml 1,000 ML 75 ML IV (06:45)
[2024-01-15] MEDS: LACTATED RINGERS 1000 ML 1,000 ML 100 ML IV (06:45)
[2024-01-15 06:50] LABS: Hemoglobin* 13.3 gm/dL (12.0-16.0)
[2024-01-15 06:56] LABS: Ur HCG Qualitative* Negative (Negative)
[2024-01-15] MEDS: SCOPOLAMINE 1 MG/3 DAY PATCH 1 PATCH TRANSDERMA (06:59)
[2024-01-15 07:06] LABS: Creatinine* 0.8 mg/dL (0.5-1.5); Est. Creatinine Clearance* 77.49; Estimated Glomerular Filt Rate 93 ml/min
--- NOTE | 2024-01-15 07:11 | W.PM.H&PU ---
History & Physical Update History & Physical Update H&P Reviewed and patient assessed: No changes noted
[2024-01-15] MEDS: CEFAZOLIN 2 GM INJ IVP (07:51)
--- NOTE | 2024-01-15 08:05 | W.ANESCHARGE ---
Anesthesia Charges Start Date/Time Anesthesia Start Date: 01/15/24 Anesthesia Start Time: 07:27 Stop Date/Time Anesthesia Stop Date: 01/15/24 Anesthesia Stop Time: 10:45
[2024-01-15] MEDS: FLUORESCEIN 10% INJ 500 MG IVP (08:44)
[2024-01-15] MEDS: VASOPRESSIN 20 UNIT/ML INJ INJECTION (10:00)
[2024-01-15] MEDS: 0.9 % SODIUM CHLORIDE 50 ml INJECTION (10:00)
[2024-01-15] MEDS: ESTROGENS, CONJUGATED VAGINAL 0.625 MG/G CREAM 1 APPLIC VAGINAL (10:07)
--- NOTE | 2024-01-15 10:34 | W.PM.GYNPROC ---
Procedure Note Date of procedure: 01/15/24 Will [facility] bill your pro fee for this procedure?: Yes Pre-op diagnosis: Abnormal uterine bleeding, pelvic organ prolapse Post-op diagnosis: Abnormal uterine bleeding, pelvic organ prolapse Procedure: Total vaginal hysterectomy, bilateral fimbriectomy, bilateral uterosacral ligament suspension, anterior vaginal repair, perineorrhaphy, cystoscopy Anesthesia: spinal Complications: None Surgeon: Vishnu Maldonado MD Data Security Coordinator: Silvana Cm Estimated blood loss (mL): 100 IV fluids (mL): 900 Urine Output (mL): 200 Pathology: specimen obtained, sent to pathology (Uterus and cervix, bilateral fallopian tubes with fimbria and small paratubal cysts) Condition: stable Disposition: floor Findings: External genitalia adequate for sex and age. Anterior vagina and uterine prolapse grade 3. Posterior vaginal wall prolapse grade 2. Uterus of about 7cm. Grossly normal. Bilateral fallopian tubes and fimbria grossly normal, both with small 1cm paratubal simple cysts. Bilateral ovaries of about 3cm and grossly normal. Procedure Description: The patient was taken to the OR with IV fluid running and pneumatic compression stockings were applied to the lower extremities. Spinal anesthesia was obtained without difficulty. The patient was placed in the dorsal lithotomy position with Freddie type stirrups. Buttock was positioned slightly over the edge the table. The patient was prepped and draped in normal sterile fashion. Examination under anesthesia revealed the findings as above. Hernandez catheter was inserted and the bladder was emptied. A short weighted speculum was placed into the vagina. A Awilda retractor placed at the anterior vagina to protect the bladder. The anterior and posterior lip of the cervix grasped with a double tooth tenaculum. With outward traction applied on the tenaculum diluted Vasopressin was injected circumferentially into the cervicovaginal junction for hydrodissection purposes. Afterwards a circumferential incision was made with the scalpel at the cervical vaginal junction. Incision was carried down to the para cervical fascia, allowing the cervix to separate from the vagina mucosa. Minimal bleeding encountered. Separation of the anterior vaginal mucosa from uterus performed bluntly with moist gauze and performed until peritoneal reflection identified, this was picked up and entered sharply with Kwon scissors. A Awilda retractor was inserted into the vesicouterine space. Attention was then placed to the posterior vagina, where blunt dissection also utilized until identification of the posterior peritoneum, this was grasped with pickups and entered sharply with Kwon scissors with the tip pointing to the uterus. Clear peritoneal fluid was noted. The weighted speculum was removed in a long Aniya speculum was inserted into the cul-de-sac. The uterosacral ligaments were clamped with Nadine clamps, cut, and suture ligated. These were tagged with straight clamp. Follow-up were the cardinal ligaments. Significant uterine descent was noted, the uterine vessels were identified, clamped, and cut and suture ligated. The broad and round ligaments were then clamped, cut, and suture ligated. Finally the ovarian ligaments were clamped, cut and doubly tied. The uterus was removed through the vagina. Packing of the intestines performed utilizing a surgical lap and starting on the right, the right fallopian tube was grasped with Cosme, utilizing a Nadine clamp, fallopian tube including fimbrial ends and small paratubal cysts were clamped, cut and suture ligated. Same procedure performed on the left. Hemostasis was secured. Ovaries looked normal. Examination of all of the pedicles revealed good hemostasis. There was some bleeding identified from the vaginal edge between 7-8 o clock posteriorly and hemostasis secured with a Vicryl 2-0 running stitch. Tagged uterosacrals were utilized to create traction and further identify the ligament and starting on the right side two 0 PDS sutures were anchored approximately 1-2 cm above the level of the ischial spine. Same procedure was performed on the left side. First cystoscopy was completed, uterosacral ligament sutures were held under tension and bilaterally brisk ureteral efflux was confirmed. Attention was then placed to the anterior vagina. Allis camps were placed along the midline of the anterior vaginal wall and dilute Vasopressin solution injected along the anterior vaginal wall. A vertical midline incision was then made and the vaginal epithelium was dissected from the underlying tissue using Metzenbaum scissors. Plication of the underlying vaginal muscularis and adventitia was performed using a running Vicryl 0 suture. Redundant vaginal mucosa was trimmed, and the vaginal incision was closed with Vicryl 2-0. The uterosacral ligament suspension sutures were then placed through the vagina apex bilaterally and held. The vaginal cuff was closed with Vicryl 2-0 in a vertical fashion. The uterosacral ligament suspension sutures were tied, though suspending the vaginal apex. Cystoscopy was repeated and the bladder was reinspected. Bladder mucosa was noted to be intact, no evidence of suture material, bilateral ureteral jets with brisk and normal efflux. These were visualized as fluorescein IV had been given at least 30 minutes prior to this part of the procedure. Urethral integrity was confirmed. Attention was then turned to the posterior vagina, posterior vaginal wall well supported by apical suspension no need for posterior repairs. Perineorrhaphy completed next. The posterior hymen was grasped on both size with Allis clamps to allow entry of 3 fingers. The area of anticipated dissection was injected with diluted vasopressin solution. A triangle-shaped incision was then made over the perineal body skin. Skin was trimmed off and the Bulbocavernosus muscles as well as the transverse perineal muscles were plicated in the midline with interrupted Vicryl 0 suture. The midline incision was then closed in a running fashion using Vicryl 2-0. Hemostasis secured. Rectal exam confirmed no injury to the rectum. Vaginal packing with Premarin was left in place. Hernandez catheter had been replaced and will be kept in place until removal of vaginal packing. All instruments were removed from the vagina, and all counts were correct x2. The patient was taken to the recovery room in a stable condition.
--- NOTE | 2024-01-15 10:47 | W.ANESCHARGE ---
Anesthesia Charges Start Date/Time Anesthesia Start Date: 01/15/24 Anesthesia Start Time: 07:27 Stop Date/Time Anesthesia Stop Date: 01/15/24 Anesthesia Stop Time: 10:45
[2024-01-15] MEDS: ACETAMINOPHEN 500 MG TABLET 1000 MG PO ×2 (11:55→20:08)
[2024-01-15] MEDS: OXYCODONE 5 MG TABLET PO ×3 (11:55→21:19)
[2024-01-15] MEDS: ONDANSETRON 2 MG/ML inj 4 MG IVP (14:44)
[2024-01-15] MEDS: LACTATED RINGERS 1000 ML 1,000 ML 50 ML IV (16:14)
[2024-01-15] MEDS: KETOROLAC 30 MG/ML inj IVP ×2 (17:39→23:45)
[2024-01-15] MEDS: CARBOXYMETHYLCELLULOSE (REFRESH PLUS) TEARS 1 DROP EYE-BOTH (17:40)
--- NOTE | 2024-01-15 18:33 | PC.NURSE ---
End of shift: Patient alert and oriented x4. Patient's VSS, BP on the softer side, patient stated that is normal. Patient on RA, afebrile. Packing in vagina still in place. Hernandez is patent and draining. Patient c/o Nausea after eating, PRN zofran administered with some relief. Patient used QZ patch and policy writer sales recommended saltines and juan david anna. Patient rates pain 5/10 PRN Tylenol and oxy. administered w/relief. Patient encouraged to drink fluids, IV patent and LR running at 50mls/hr. Patient encouraged to sit and dangle at bedside and stand at bedside, Patient became light headed and nauseous. Encouraged patient to lay flat. BP and nauseousness improved. Dual Rate Supervisor encouraged patient to try to eat dinner at bedside and hour later. Patient up to chair and tolerated activity well, did not tolerate eating dinner, patient became nauseous. Heating pad applied to lower back for pain and patient tolerating well.
[2024-01-16 03:55] VITALS: BP 114/64; PULSE 75; RESP 16; TEMP 37; O2SAT 96
--- NOTE | 2024-01-16 04:50 | PC.NURSE ---
Shift note: Lower abdominal pain 09/08 and chronic lower back pain treated per eMAR with relief 2-06/08. No c/o nausea throughout this shift, sanches cath in place, urine output is adequate. PO fluid and food intake with no nausea, pt is SL. She has been ambulating in the room and leal way HS.
[2024-01-16 06:15] LABS: Hemoglobin* 12.8 gm/dL (12.0-16.0)
[2024-01-16 06:49] LABS: Creatinine* 0.8 mg/dL (0.5-1.5); Est. Creatinine Clearance* 77.49; Estimated Glomerular Filt Rate 93 ml/min
[2024-01-16 07:00] VITALS: BP 109/71; PULSE 85; RESP 16; TEMP 36.4; O2SAT 98
--- NOTE | 2024-01-16 07:48 | PM.GYNDS1 ---
DS: Providers Provider Time Seen by Provider: 07:48 Date Seen: 01/16/24 Date of admission: 01/15/24 Primary care physician: Jovana Byrne PA-C Admitting Clinician: Vishnu Maldonado MD Attending Physician on discharge: Kamila Maldonado MD Date of Discharge: 01/16/24 DS: Diagnosis Discharge Diagnosis (1) S/P hysterectomy: Status: Acute Problem details: Total vaginal hysterectomy, bilateral fimbriectomy, uterosacral ligament suspension, anterior colporrhaphy, perineorrhaphy, cystoscopy [employer]-Discharge Summary Hospital Course Hospital Course Narrative: Patient is a 43 year old admitted on 01/15/2024 for elective surgery. Indication for surgery: Abnormal uterine bleeding, pelvic organ prolapse. Intraoperative findings were notable for grade 3 anterior vaginal wall and uterine prolapse, grade 2 posterior vaginal wall prolapse, bilateral small paratubal cysts, grossly normal ovaries, grossly normal uterus of about 7-8cm. She had an uncomplicated surgery. Postoperative course has been uneventful. Vitals have been stable. She has remained afebrile. Today, on postoperative day 1, she reports the pain is well controlled. She has been able to ambulate Without difficulty. She is tolerating regular diet. She is passing flatus. Hernandez catheter has been removed, and she is voiding without difficulty. Time Spent with Patient Time attestation: Total time spent providing and/or coordinating discharge services: Time spent: Less than 30 minutes [employer] - Exam Physical Exam: Vital signs: Temp Pulse Resp BP Pulse Ox O2 Del Method 98.6 F 75 16 114/64 96 Room Air 01/16/24 03:55 01/16/24 03:55 01/16/24 03:55 01/16/24 03:55 01/16/24 03:55 01/16/24 03:55 Narrative: VITAL SIGNS: As noted above. GENERAL APPEARANCE: Alert, cooperative female in no acute distress. MOOD & AFFECT: Normal. ABDOMEN: Bowel sounds present at all quadrants. Soft, non-distended and nontender. : Hernandez in place with clear urine, vaginal packing removed and not soaked. EXTREMITIES: Nonedematous. Well perfused. Nontender. [employer] - DS: Data Data Completed and Pending Labs on day of discharge: Labs from last 24 hours 01/16/24 05:56 Hgb 12.8 Creatinine 0.8 Estimated Creat Clear 77.49 Estimated GFR 93 Procedures Procedures: Procedures Operation Date: 01/15/24 07:15 Actual Procedure Side Surgeon p Total Vaginal Hysterectomy, Bilateral fimbriectomy, Uterosacral Ligament Suspension, Anterior Repairs, perieonerrhpahy, Cystoscopy Kamila Maldonado MD Discharge Plan Discharge Disposition: Home, Self-Care Discharging Surgeon: Kamila Maldonado Follow-Up Appointment: Scheduled- 2 weeks at [facility] Prescriptions: New acetaminophen 500 mg Tablet 1,000 mg PO Q6H PRN (Reason: minor pain) Qty: 30 0RF ibuprofen 600 mg Tablet 600 mg PO Q6H Qty: 30 0RF oxycodone 5 mg Tablet 5 mg PO Q4H PRN (Reason: Moderate Pain) Qty: 15 0RF docusate sodium 100 mg tablet 100 mg PO BID Qty: 30 0RF Continued venlafaxine 75 mg capsule,extended release 24hr 75 mg PO DAILY Qty: 90 3RF albuterol sulfate 90 mcg/actuation HFA aerosol inhaler 2 puff PO Q4H PRN (Reason: asthma) Qty: 6.7 3RF fluticasone furoate-vilanterol [Breo Ellipta] 100-25 mcg/dose blister with device 1 inh inhalation Q24H Qty: 60 6RF Rx Instructions: once daily for asthma scopolamine base 1 mg over 3 days patch 3 day 1 patch topical Q3D Qty: 12 2RF Activity Level: Activity as Tolerated and No Weight Bearing Activity Detail: No lifting more than 15 pounds, nothing vaginally for 6 weeks Discharge Diet: Regular Patient Instructions: Vaginal Hysterectomy (DC) Forms: Work/School Release Follow-up: Jovana Byrne PA-C [Primary Care Provider] - Discharge Orders: Discharge Order (Routine); Ordered 01/16/24 Ordered By: Kamila Maldonado
[2024-01-16] MEDS: VENLAFAXINE ER 75 MG CAPSULE PO (09:23)
[2024-01-16] MEDS: IBUPROFEN 600 MG TABLET PO (09:31)
[2024-01-16] MEDS: ACETAMINOPHEN 500 MG TABLET 1000 MG PO (12:45)
[2024-01-16] MEDS: OXYCODONE 5 MG TABLET PO (12:45)
--- NOTE | 2024-01-16 12:55 | PC.NURSE ---
Discharge: patient discharged to home accompanied by spouse at 1245. Hernandez catheter removed this morning at 0930. Tip intact. Voiding trial completed, patient tolerated 250cc in and 250cc out. Patients VSS, PRN oxy/tylenol administered prior to discharge to home. Patient on RA, afebrile and voiding indep. Patient passing gas and ambulating hallways indep. Skant amount of blood noted in toilet when patient voided. No clots or excessive bleeding was noted per patient. IV removed, tip intact. Patient's belonging sheet signed and discharge instructions given to patient. Discharge instructions was signed by patient and verbalized understanding of instructions.
== END 2024-01-16 12:45 | disposition home or self-care (01) ==
LOC: OR 06:02 → MEDSURG 06:24
PROVIDERS: PCP Physician Assistant Medical; Visit Provider Obstetrics & Gynecology
PROC: 0TJB8ZZ Inspection of Bladder, Via Natural or Artificial Opening Endoscopic (ICD-10-PCS; CPT 57260; principal; 2024-01-15 07:15)
DX: N81.3 Complete uterovaginal prolapse (principal); N93.8 Other specified abnormal uterine and vaginal bleeding; N83.8 Other noninflammatory disorders of ovary, fallopian tube and broad ligament; J45.909 Unspecified asthma, uncomplicated; F41.8 Other specified anxiety disorders
CPT/HCPCS: 58262; 57240; 56810; 00944; 36415; 51701; 81025; 82565; 85018; 86850; 86900; 86901; 88307; A9270; J0690; J1100; J1630; J1885; J2250; J2405; J2704; J3010; J3490; J7030; J7120

== ENCOUNTER 2024-07-13 08:15 | Outpatient (RCR) | payer OTHER, SELFPAY | END 2024-09-08 12:42 | disposition home or self-care (01) | PROVIDERS: PCP Physician Assistant Medical; Visit Provider Obstetrics & Gynecology | DX: R39.15 Urgency of urination (principal); N81.9 Female genital prolapse, unspecified; M54.50 Low back pain, unspecified; Z51.89 Encounter for other specified aftercare | CPT/HCPCS: 97110; 97140; 97161; 97530 ==

== ENCOUNTER 2024-07-17 09:53 | Outpatient (CLI) | payer OTHER, SELFPAY | END 2024-07-17 09:54 | disposition home or self-care (01) | LOC: NFLDREF 07-21 17:48 | PROVIDERS: PCP Physician Assistant Medical; Referring Provider Physician Assistant Medical; Visit Provider Physician Assistant Medical | DX: Z13.6 Encounter for screening for cardiovascular disorders (principal); Z13.1 Encounter for screening for diabetes mellitus; Z13.29 Encounter for screening for other suspected endocrine disorder | CPT/HCPCS: 80061; 82947; 84443 ==

== ENCOUNTER 2024-10-26 10:03 | Outpatient (CLI) | payer OTHER, SELFPAY ==
--- NOTE | 2024-10-26 10:15 | CRLHL7_ITS ---
For Patients: As a result of the Century Cures Act, medical imaging exams and procedure reports are released immediately into your electronic medical record. You may view this report before your referring provider. If you have questions, please contact your health care provider. INDICATION: BILATERAL SCREENING MAMMOGRAM, ASYMPTOMATIC 44 Y/O FEMALE COMPARISON: 09/03/2023, 04/17/2022, 03/07/2021 TECHNIQUE: Digital mammogram in CC and MLO projections including computer-aided detection (CAD) and tomosynthesis. BREAST COMPOSITION: The breasts are heterogeneously dense, which may obscure small masses. FINDINGS: No suspicious findings. ASSESSMENT: BI-RADS 1 Negative RECOMMENDATION: Annual screening mammogram. A lay language report of this examination will be provided to the patient. Dictated by: Kelly Villarreal MD @ 10/27/2024 14:07:38 (Electronically Signed)
== END 2024-10-26 10:04 | disposition home or self-care (01) ==
LOC: MAMMO 10:03
PROVIDERS: PCP Physician Assistant Medical; Visit Provider Physician Assistant Medical
DX: Z12.31 Encounter for screening mammogram for malignant neoplasm of breast (principal); R92.333 Mammographic heterogeneous density, bilateral breasts
CPT/HCPCS: 77063; 77067